=== PATIENT | male | born 2000 | race Caucasian/White ===

== ENCOUNTER 2021-09-09 21:25 | Emergency (ER) | payer OTHER ==
[~2021-09-09] VITALS: Ht 180.3 cm; Wt 88.5 kg
== END 2021-09-09 23:35 | disposition home or self-care (01) ==
LOC: ER 21:25
DX: S31.21XA Laceration without foreign body of penis, initial encounter (principal); X58.XXXA Exposure to other specified factors, initial encounter
CPT/HCPCS: 12001; 99283-25